=== PATIENT | female | born 1980 | race American Indian/Alaskan Native ===

== ENCOUNTER 2017-11-15 23:11 | Inpatient (IN) | payer BC ==
[2017-11-16] MEDS ORDERED: LACTATED RINGERS 2,000 ML ONE (00:15)
[2017-11-16] MEDS ORDERED: SUBLIMAZE ONE ×2 (00:16→02:14)
[2017-11-16] MEDS ORDERED: STADOL IV PRN (00:23)
[2017-11-16] MEDS ORDERED: SUBLIMAZE IV PRN (00:30)
[2017-11-16] MEDS: LACTATED RINGERS 1,000 ML IV SCH ×2 (00:32→01:31)
[2017-11-16] MEDS ORDERED: ePHEDrine SULFATE ONE (01:59)
[2017-11-16] MEDS ORDERED: NARCAN 2 MG/2 ML IV PRN (02:10)
[2017-11-16] MEDS ORDERED: ePHEDrine SULFATE IV PRN (02:10)
[2017-11-16 02:25] LABS: Hematocrit 36.7 % (30.3-42.9); Hemoglobin 12.8 gm/dl (10.1-14.3); Mean Corpuscular HGB Conc 35 % (30-34); Mean Corpuscular Hemoglobin 28 pg (28-32); Mean Corpuscular Volume 80 fl (79-97); Platelet Count 200 K/mm3 (140-440); Red Cell Distribution Width 14.1 % (13.2-15.2)
--- NOTE | 2017-11-16 02:35 | History and Physical Report ---
History of Present Illness Date of examination: 11/16/17 Date of admission: 11/15/17 23:39 Chief complaint: contractions History of present illness: This is a 37 yo G 5P3 at 40+5 weeks came in c/o srom clear fluid. She was grossly ruptured and pelvic exam 100/-2. She is a patient of [facility] at 10 weeks. 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 hx of + sickle trait. 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 11/16/17 Unknown Rx HYDROcodone/APAP 5-325 [[place] 1 each PO Q6HR PRN #30 tablet 11/16/17 Unknown Rx 5/325] Ibuprofen [Motrin] 600 mg PO Q8H PRN #30 tablet 11/16/17 Unknown Rx [id number]/Iron/Folic Acid/Dha 11/16/17 Unknown History [Prena1 Britney Softgel] Active Meds: Active Medications Butorphanol Tartrate (Stadol) 2 mg IV Q2H PRN PRN Reason: Labor Pain Ephedrine Sulfate (Ephedrine Sulfate) 10 mg IV Q2M PRN PRN Reason: Hypotension Fentanyl (Sublimaze) 100 mcg IV Q2H PRN PRN Reason: Labor pain Last Admin: 11/16/17 00:20 Dose: 100 mcg Lactated Ringer's (Lactated Ringers) 1,000 mls @ 125 mls/hr IV DIRECT TIO Last Admin: 11/16/17 01:31 Dose: 125 mls/hr Fentanyl/Bupivacaine/Sodium Chlor (Fentanyl-Bupiv 2 Mcg/Ml-0.125%) 200 mcg in 100 mls @ 12 mls/hr EPIDURAL TITR TIO PRN Reason: Protocol Naloxone HCl (Narcan 2 Mg/2 Ml) 0.2 mg IV Q5M PRN PRN Reason: Respiratory sedation - Vital Signs Vital signs: Vital Signs Pulse Resp BP 88 14 132/71 11/16/17 00:41 11/16/17 00:41 11/16/17 00:41 Temp Pulse Resp BP Pulse Ox 98 H 14 169/72 72 L 11/16/17 02:32 11/16/17 00:41 11/16/17 02:32 11/16/17 02:29 - Physical Exam Abdomen: Positive: soft, normal bowel sounds. Negative: distention, tenderness , guarding Genitourinary (Female): Positive: normal external genitalia, normal perenium Uterus: Positive: normal size Anus/Rectum: Positive: normal perianal skin - Obstetrical Cervical Dilatation: 5 Cervical Effacement Percentage: 100 station: -2 Uterine Tone Measurement Phase: Contraction Uterine Contraction Intensity: Strong/Firm Results Result Diagrams: 11/16/17 00:06 Abnormal lab results 11/16/17 Range/Units 00:06 MCHC 35 H (30-34) % All other labs normal. Assessment and Plan A/P IUP 40+6 weeks Active labor SROM ivf and labs offer epidural expect vaginal delivery
[2017-11-16] MEDS ORDERED: PITOCin/NS 20 UNIT/1000ML DRIP 20,000 MILLIUNITS/1,000 ML BAG IV ONE (02:43)
[2017-11-16] MEDS ORDERED: fentaNYL-BUPIV 2 MCG/ML-0.125% 200 MCG/100 ML BAG EPIDURAL SCH (03:00)
[2017-11-16] MEDS ORDERED: PITOCin/NS 20 UNIT/1000ML DRIP 20 UNITS/1,000 ML BAG IV SCH (03:00)
--- NOTE | 2017-11-16 03:04 | Anesthesia Consultation ---
Anesthesia Consult and Med Hx Date of service: 11/16/17 - Airway Anesthetic Teeth Evaluation: Poor - Pulmonary Exam CTA: Yes - Cardiac Exam Cardiac Exam: RRR - Pre-Operative Health Status ASA Pre-Surgery Classification: ASA2 - Pulmonary Hx Smoking: No Hx Asthma: No - Cardiovascular System Hx Hypertension: No - Central Nervous System Hx Seizures: No Hx Psychiatric Problems: No - Endocrine Hx Renal Disease: No Hx Hypothyroidism: No Hx Hyperthyroidism: No - Hematic Hx Anemia: No Hx Sickle Cell Disease: No - Other Systems Hx Alcohol Use: No
--- NOTE | 2017-11-16 03:59 | Procedure Note ---
OB Delivery Note - Delivery Date of Delivery: 11/16/17 Surgeon: JOSE DE JESUS CRAWLEY - Vaginal Delivery presentation: vertex Delivery position: OA Intrapartum events: none Delivery monitor: external FHT, external uterine Route of delivery: Delivery placenta: spontaneous Delivery cord: 3 umbilical vessels Episiotomy: none Delivery repair: vicryl Anesthesia: epidural Delivery comments: Patient progressed to C/C/+2 and pushed to deliver a liveborn female infant with apgars of 8/9 @ 0320. After delivery of the head, the shoulders delivered easily. The cord was clamped and cut and the infant was placed on the patient's abdomen. The placenta delivered spontaneously intact with a 3VC. First degree perineum lac repaired with 2-0 vicryl. Weight 8lbs 4oz. EBL 500cc. - Infant A at 1 minute: 8 at 5 minutes: 9 Infant Gender: Female
[2017-11-16] MEDS ORDERED: PHENERGAN PO PRN (04:49)
[2017-11-16] MEDS ORDERED: ZOFRAN IV PRN (04:49)
[2017-11-16] MEDS ORDERED: BENADRYL PO PRN (04:49)
[2017-11-16] MEDS ORDERED: LANSINOH TP PRN (04:49)
[2017-11-16] MEDS ORDERED: PHENERGAN PR PRN (04:49)
[2017-11-16] MEDS ORDERED: MILK OF MAGNESIA PO PRN (04:49)
[2017-11-16] MEDS ORDERED: TUCKS PAD TP PRN (04:49)
[2017-11-16] MEDS ORDERED: DULCOLAX PR PRN (04:49)
[2017-11-16] MEDS ORDERED: TYLENOL PO PRN (04:49)
[2017-11-16] MEDS ORDERED: SODIUM CHLORIDE FLUSH SYRINGE 10 ML IV PRN (05:00)
[2017-11-16] MEDS: MOTRIN PO SCH ×3 (06:11→23:39)
[2017-11-16 17:55] LABS: Hematocrit 30.8 % (30.3-42.9); Hemoglobin 10.4 gm/dl (10.1-14.3)
[2017-11-17] MEDS: MOTRIN PO SCH ×2 (05:38→12:06)
--- NOTE | 2017-11-17 13:43 | Progress Note ---
Assessment and Plan A/P PPD#1 s/p breast and bottle feeding VSS h/h stable d/c home with f/u in 4 weeks desires tubal ligation Subjective - Subjective Date of service: 11/17/17 Principal diagnosis: s/p Interval history: This is a 37 yo G 5P3 at 40+5 weeks came in c/o srom clear fluid. She was grossly ruptured and pelvic exam 4/100/-2. She is a patient of [facility] at 10 weeks. 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 hx of + sickle trait. Patient reports: appetite normal, voiding normally, pain well controlled, flatus , ambulating normally : doing well, nursing well Objective - Vital Signs Latest vital signs: Vital Signs Temp Pulse Resp BP BP Pulse Ox 11/17/17 08:15 97.5 F L 80 18 118/81 97 11/17/17 05:38 18 11/17/17 00:00 98 H 127/76 100 11/16/17 23:50 98.6 F 98 H 20 127/76 100 11/16/17 23:39 18 11/16/17 16:05 97.9 F 91 H 20 121/78 11/16/17 15:55 20 Intake and Output 11/16/17 11/17/17 11/17/17 23:59 07:59 15:59 Intake Total 840 480 960 Balance 840 480 960 Intake: Oral 840 480 960 Other: Total, Intake Amount 240 240 360 # Voids Void 1 1 1 - Exam Breasts: Present: normal Cardiovascular: Present: Regular rate, Normal S1 Lungs: Present: Clear to auscultation, Normal air movement Abdomen: Present: normal appearance, soft, normal bowel sounds. Absent: distention, tenderness, guarding Vulva: both: normal Uterus: Present: normal, firm, fundal height below umbilicus. Absent: bogginess , tenderness Extremities: Present: normal Deep Tendon Reflex Grade: Normal +2 Incision: Present: normal
--- NOTE | 2017-11-17 13:46 | Discharge Summary ---
Providers - Providers Date of Admission: 11/15/17 23:39 Date of discharge: 11/17/17 Attending physician: JOSE DE JESUS CRAWLEY MD Primary care physician: JOSE DE JESUS CRAWLEY MD Hospitalization Reason for admission: IUP at term Delivery: Episiotomy: none Laceration: none Incision: normal Other procedures: none complications: none Discharge diagnosis: IUP at term delivered baby: female Condition at discharge: Good Disposition: [id number] TO HOME OR SELFCARE Plan - Discharge Medications Prescriptions: Ferrous Sulfate 325 mg PO BID #60 tablet. HYDROcodone/APAP 5-325 [[place] 5/325] 1 each PO Q6HR PRN #30 tablet PRN Reason: Pain Ibuprofen [Motrin] 600 mg PO Q8H PRN #30 tablet PRN Reason: Pain - Provider Discharge Summary Activity: routine, no sex for 6 weeks, no strenuous exercise Diet: routine Instructions: routine Additional instructions: [] Smoking cessation referral if applicable(refer to patient education folder for contact #) [] Refer to [facility]'s [facility] Booklet Call your doctor immediately for: * Fever > 100.5 * Heavy vaginal bleeding ( >1 pad per hour) * Severe persistent headache * Shortness of breath * Reddened, hot, painful area to leg or breast * Drainage or odor from incision. * Keep incision clean and dry at all times and follow doctor's instructions regarding bathing/showering - Follow up plan Follow up: JOSE DE JESUS CRAWLEY MD [Primary Care Provider] - 12/07/17
[2017-11-17 19:04] VITALS: BP 125/79
== END 2017-11-17 17:55 | disposition home or self-care (01) | DRG 774 ==
LOC: TRG 23:11 → LD 23:18 → TRG 23:39 → LD 23:39 → OB 11-16 05:06
PROVIDERS: ADMIT Obstetrics & Gynecology; ATTEND Obstetrics & Gynecology
PROC: 10E0XZZ Delivery of Products of Conception, External Approach (ICD-10-PCS; principal; 2017-11-16)
PROC: 3E0R3BZ Introduction of Anesthetic Agent into Spinal Canal, Percutaneous Approach (ICD-10-PCS; 2017-11-16)
PROC: 00HU33Z Insertion of Infusion Device into Spinal Canal, Percutaneous Approach (ICD-10-PCS; 2017-11-16)
PROC: 0HQ9XZZ Repair Perineum Skin, External Approach (ICD-10-PCS; 2017-11-16)
DX: O99.02 Anemia complicating childbirth (principal); O98.52 Other viral diseases complicating childbirth; Z3A.40 40 weeks gestation of pregnancy; Z37.0 Single live birth; O70.0 First degree perineal laceration during delivery; D57.3 Sickle-cell trait; Z83.49 Family history of other endocrine, nutritional and metabolic diseases; B00.9 Herpesviral infection, unspecified; Z79.899 Other long term (current) drug therapy
CPT/HCPCS: 36415; 85014; 85018; 85027; 86592; 86850; 86900; 86901; 99211; A6250; G0463; J2590; J3010; J7120